=== PATIENT | female | born 1950 | race Caucasian/White ===

== ENCOUNTER 2018-05-04 11:44 | Emergency (ER) | payer OTHER ==
[~2018-05-04] VITALS: Ht 160 cm; Wt 72.6 kg
[~2018-05-04 11:44] MED LIST: ALBUTEROL2.5 MG/3 M; BONIVA150 MG PO; CYMBALTA60 MG; ELAVIL; FOSAMAX PLUS D1 TAB; LYRICA50 MG PO; METH16TA; PNEU16DI2; ROBITUSSIN COU118 M5; ROBITUSSIN NIG118 ML; TESSALON PERLE100 MG; VITAMINA D; VOLTAREN75 MG; [UNRECOGNIZED DRUG - CODE]
[2018-05-04] MEDS ORDERED: AZITHROMYCIN500 MG PO (12:08)
[2018-05-04] MEDS ORDERED: BUDESONIDE0.5 MG/2 M IH (20:10)
[2018-05-04] MEDS ORDERED: ALBUTEROL0.63 MG/3 IH (20:10)
== END 2018-05-04 20:23 | disposition home or self-care (01) ==
LOC: ER 11:44
DX: J06.9 Acute upper respiratory infection, unspecified (principal); J11.1 Influenza due to unidentified influenza virus with other respiratory manifestations

== ENCOUNTER 2018-05-13 21:44 | Emergency (ER) | payer OTHER ==
[~2018-05-13] VITALS: Ht 157.5 cm; Wt 79.4 kg
[~2018-05-13 21:44] MED LIST changes: +ALBUTEROL0.63 MG/3 IH; +AZITHROMYCIN500 MG PO; +BUDESONIDE0.5 MG/2 M IH
[2018-05-14] MEDS ORDERED: BUDESONIDE0.5 MG/2 M IH (06:48)
[2018-05-14] MEDS ORDERED: LEVALBUTER1.25 MG/3 IH (06:48)
[2018-05-14] MEDS ORDERED: MEDROLPACK PO (06:48)
[2018-05-14] MEDS ORDERED: TESSALON PERLE100 M1 PO (06:48)
[2018-05-14] MEDS ORDERED: OSEL75CA PO (06:48)
[2018-05-14] MEDS ORDERED: AIRBORNE EFFER1 EACH PO (06:48)
[2018-05-14] MEDS ORDERED: MUCINEX DM ER1 EAC1 PO (06:48)
[2018-05-14] MEDS ORDERED: IPRATROPIU0.2 MG/1 M IH (06:48)
== END 2018-05-14 07:13 | disposition home or self-care (01) ==
LOC: ER 21:44
DX: J11.1 Influenza due to unidentified influenza virus with other respiratory manifestations (principal); J45.998 Other asthma

== ENCOUNTER → 2020-10-15 | Outpatient (CLI) | payer OTHER ==
[~2020-10-15] MED LIST changes: +AIRBORNE EFFER1 EACH PO; +IPRATROPIU0.2 MG/1 M IH; +LEVALBUTER1.25 MG/3 IH; +MEDROLPACK PO; +MUCINEX DM ER1 EAC1 PO; +OSEL75CA PO; +TESSALON PERLE100 M1 PO
== END | disposition home or self-care (01) ==
LOC: MRI 11:00
PROVIDERS: ATTEND Anesthesiology Pain Medicine
DX: M47.817 Spondylosis without myelopathy or radiculopathy, lumbosacral region (principal); M51.27 Other intervertebral disc displacement, lumbosacral region
CPT/HCPCS: 72148

== ENCOUNTER → 2020-11-12 | Outpatient (CLI) | payer OTHER | END | disposition home or self-care (01) | LOC: MRI 12:31 | PROVIDERS: ATTEND Anesthesiology Pain Medicine | DX: M50.322 Other cervical disc degeneration at C5-C6 level (principal) | CPT/HCPCS: 72141 ==

== ENCOUNTER 2021-08-08 11:37 | Outpatient (CLI) | payer OTHER | END 2021-08-08 11:49 | disposition home or self-care (01) | LOC: MAMO-SONO 11:37 | PROVIDERS: ATTEND Internal Medicine | DX: N63.11 Unspecified lump in the right breast, upper outer quadrant (principal); N63.12 Unspecified lump in the right breast, upper inner quadrant; N63.42 Unspecified lump in left breast, subareolar ==

== ENCOUNTER 2021-08-12 13:02 | Outpatient (CLI) | payer OTHER | END 2021-08-12 13:12 | disposition home or self-care (01) | LOC: MRI 13:02 | PROVIDERS: ATTEND Internal Medicine Rheumatology | DX: M75.82 Other shoulder lesions, left shoulder (principal) | CPT/HCPCS: 73221 ==

== ENCOUNTER 2021-09-02 12:09 | Outpatient (CLI) | payer OTHER | END 2021-09-02 12:10 | disposition home or self-care (01) | LOC: RAD 12:09 | PROVIDERS: ATTEND Internal Medicine | DX: M25.569 Pain in unspecified knee (principal) ==

== ENCOUNTER 2022-08-24 13:16 | Outpatient (CLI) | payer OTHER | END 2022-08-24 13:30 | disposition home or self-care (01) | LOC: RAD 13:16 | PROVIDERS: ATTEND Internal Medicine | DX: Z12.31 Encounter for screening mammogram for malignant neoplasm of breast (principal); Z12.11 Encounter for screening for malignant neoplasm of colon; M17.0 Bilateral primary osteoarthritis of knee; M25.561 Pain in right knee; M25.562 Pain in left knee ==

== ENCOUNTER 2022-09-18 13:07 | Outpatient (CLI) | payer OTHER | END 2022-09-18 13:25 | disposition home or self-care (01) | LOC: SONOGRAMA 13:07 | PROVIDERS: ATTEND Internal Medicine | DX: N20.0 Calculus of kidney (principal) ==

== ENCOUNTER 2023-05-29 13:04 | Outpatient (CLI) | payer OTHER | END 2023-05-29 13:18 | disposition home or self-care (01) | LOC: TOM 13:04 | PROVIDERS: ATTEND Colon & Rectal Surgery | DX: K57.92 Diverticulitis of intestine, part unspecified, without perforation or abscess without bleeding (principal) ==

== ENCOUNTER 2023-06-19 10:33 | Outpatient (CLI) | payer OTHER | END 2023-06-19 10:43 | disposition home or self-care (01) | LOC: MRI 10:33 | PROVIDERS: ATTEND Anesthesiology | DX: M54.59 Other low back pain (principal) | CPT/HCPCS: 72148 ==